=== PATIENT | female | born 1985 | race Two or more races ===

== ENCOUNTER 2022-06-01 13:33 | Emergency (ER) | payer OTHER ==
[~2022-06-01] VITALS: Ht 162.6 cm; Wt 59.0 kg
[2022-06-01] MEDS ORDERED: PEPCID AC20 MG PO (18:19)
[2022-06-01] MEDS ORDERED: LEVSIN/SL0.125 MG SL (18:19)
== END 2022-06-01 19:02 | disposition home or self-care (01) ==
LOC: ER 13:33
DX: R10.9 Unspecified abdominal pain (principal)